=== PATIENT | female | born 1955 | race Caucasian/White ===

== ENCOUNTER → 2018-07-19 08:24 | Outpatient (CLI) | payer MEDICARE | END | disposition home or self-care (01) | LOC: D.MRI 08:24 | DX: M25.511 Pain in right shoulder (principal) ==

== ENCOUNTER 2020-01-18 07:12 | Inpatient (IN) | payer MEDICARE ==
[~2020-01-18] VITALS: Ht 162.6 cm; Wt 80.5 kg
[2020-01-18] VITALS (8 sets, daily range): BP systolic 98–152; BP diastolic 47–70; BMI 30.4
[2020-01-18 07:30] LABS: HEMATOCRIT 44.8 % (36.0-48.0); HEMOGLOBIN 14.9 g/dL (12-16); LYMPHOCYTES 35.3 % (15-50); MCH 32.3 pg (26.0-34.0); MCHC 33.3 g/dL (31.0-37.0); MEAN PLATELET VOLUME 9.8 fL (7.4-10.4); NEUTROPHILS 56.7 % (40-80); PLATELET COUNT 310 10x3/uL (130-400); RBC 4.62 10x6/uL (4.00-5.40); RDW 13.3 % (11.5-14.5)
[2020-01-18 07:52] LABS: CALC OSMOLALITY 277 mosm/kg (275-300); CALCIUM 9.4 mg/dL (8.5-10.1); CARBON DIOXIDE 25.7 mmol/L (21.0-32.0); CHLORIDE - SERUM 100 mmol/L (98-107); GLUCOSE 145 mg/dL (74-106); POTASSIUM - SERUM 3.8 mmol/L (3.5-5.1); SODIUM 137 mmol/L (136-145); UREA NITROGEN 16 mg/dL (7-18); eGFR NON AFRICAN AMERICAN 59 mL/min (90-120)
[2020-01-18] MEDS ORDERED: OMEPRAZOLE40 MG PO (07:58)
[2020-01-18] MEDS ORDERED: ZOCOR40 MG PO (07:58)
[2020-01-18] MEDS ORDERED: LEVOXYL75 MCG PO (07:58)
[2020-01-18] MEDS ORDERED: COLESTID1 GM PO (07:58)
[2020-01-18] MEDS ORDERED: ROPINIROLE HCL4 M1 PO (07:59)
[2020-01-18] MEDS ORDERED: HYDROXYCHLOROQ200 MG PO (08:00)
[2020-01-18 08:01] LABS: ALBUMIN 4.2 g/dL (3.4-5.0); ALKALINE PHOSPHATASE 112 U/L (30-120); ALT (SGPT) 78 U/L (10-68); AMYLASE - SERUM 39 U/L (25-115); BILIRUBIN - TOTAL 0.57 mg/dL (0.2-1.3); LIPASE 100 U/L (73-393); PROTEIN - SERUM 8.4 g/dL (6.4-8.2); TROPONIN-I < 0.017 ng/mL (0.000-0.060)
[2020-01-18] MEDS ORDERED: ROPINIROLE HCL2 MG PO (08:01)
[2020-01-18] MEDS ORDERED: ADIPEX-P37.5 M1 PO (08:01)
[2020-01-18] MEDS ORDERED: EFFEXOR XR150 MG PO (08:01)
--- NOTE | 2020-01-18 08:04 | NUR ---
URINE SPEC COLLECTED, LABELED AT BS AND SENT TO LAB
--- NOTE | 2020-01-18 08:25 | NUR ---
C/O ITCHING AT IV SITE. NO RASHES NOTED. NO DYSPNEA. SKIN W/D/P DR GARCIA NOTIFIED AND BENADRYL ORDERED/ADMIN
[2020-01-18 08:27] LABS: BILIRUBIN NEGATIVE (NEGATIVE); GLUCOSE NEGATIVE (NEGATIVE); KETONE NEGATIVE (NEGATIVE); NITRITE NEGATIVE (NEGATIVE); SPECIFIC GRAVITY 1.025 (1.005-1.020); UROBILINOGEN NORMAL (NORMAL)
--- NOTE | 2020-01-18 08:53 | NUR ---
RTND FROM CT. RESTING WITH EYES CLOSED LEFT SIDE. EASILY AROUSEABLE AND REPORTS PAIN AND NAUSEA RESOLVED
--- NOTE | 2020-01-18 10:56 | NUR ---
REPORT TO ROBERTO COTTRELL
--- NOTE | 2020-01-18 11:34 | NUR ---
RECEIVED PATIENT FROM ER ALERT AND ORIENTED. NO C/O PAIN. NO S/S OF ACUTE DISTRESS NOTED. IV TO LEFT FOREARM, SL. SITE PATENT WITHOUT REDNESS OR SWELLING. NGT TO LEFT NARE, ON LIS. AT BEDSIDE. DENIES ANY NEEDS AT THIS TIME. CALL LIGHT IN REACH. WILL CONTINUE TO MONITOR.
[2020-01-18 17:26] LABS: APTT 28.5 SECONDS (22.8-39.4); INR 0.89 (0.85-1.17)
--- NOTE | 2020-01-18 18:52 | NUR ---
RESTING IN BED WITH EYES CLOSED. RESPIRATIONS EVEN AND UNLABORED. NO S/S OF ACUTE DISTRESS NOTED. CALL LIGHT IN REACH. WILL CONTINUE TO MONITOR.
[2020-01-19] VITALS: BP 135/63
--- NOTE | 2020-01-19 04:29 | NUR ---
ASSESSED AT THE BEGINNING OF THE SHIFT. PT IS ALERT AND ORIENTED ABLE TO VERBALIZE NEEDS. SHE HAS A NG TUBE TO LIS AND IT IS DRAINING VERY LITTLE. SHE IS ABLE TO GET UP TO THE BATHROOM AND HAS ASKED FOR PAIN MEDS FOR A HEADACHE DURING THE NIGHT.
[2020-01-19 07:45] LABS: ALBUMIN 3.4 g/dL (3.4-5.0); ALKALINE PHOSPHATASE 125 U/L (30-120); BILIRUBIN - TOTAL 0.35 mg/dL (0.2-1.3); CALC OSMOLALITY 282 mosm/kg (275-300); CALCIUM 8.4 mg/dL (8.5-10.1); CARBON DIOXIDE 26.8 mmol/L (21.0-32.0); CHLORIDE - SERUM 108 mmol/L (98-107); CREATININE - SERUM 0.8 mg/dL (0.6-1.3); GLUCOSE 98 mg/dL (74-106); POTASSIUM - SERUM 3.8 mmol/L (3.5-5.1); PROTEIN - SERUM 6.9 g/dL (6.4-8.2); SODIUM 142 mmol/L (136-145); UREA NITROGEN 12 mg/dL (7-18); eGFR NON AFRICAN AMERICAN 76 mL/min (90-120)
[2020-01-19 07:49] LABS: ALT (SGPT) 233 U/L (10-68)
[2020-01-19 08:00] VITALS: BP 152/42
--- NOTE | 2020-01-19 08:14 | NUR ---
AWAKE AND ALERT. ORIENTED X3. NO C/O AT THIS TIME. LUNGS ARE CLEAR BILATERALLY, NO COUGH NOTED. SKIN IS INTACT WITHOUT REDNESS. NG TO RIGHT NARE IS PATENT WITH GREENISH DISCHARGE. IV TO LEFT FOREARM PATENT WITHOUT REDNESS AT INSERTION SITE. DENIES NEEDS.
[2020-01-19 08:59] LABS: BASOPHILS 0.2 % (0-2); EOSINOPHILS 1.4 % (0-7); HEMATOCRIT 38.3 % (36.0-48.0); HEMOGLOBIN 12.2 g/dL (12-16); IMMATURE GRANULOCYTES 0.2 % (0-5); LYMPHOCYTES 42.1 % (15-50); MCH 32.5 pg (26.0-34.0); MCHC 31.9 g/dL (31.0-37.0); MEAN PLATELET VOLUME 10.1 fL (7.4-10.4); MONOCYTES 7.8 % (2-11); NEUTROPHILS 48.3 % (40-80); RBC 3.75 10x6/uL (4.00-5.40); RDW 13.6 % (11.5-14.5)
[2020-01-19 09:06] LABS: MCV 102.1 fL (80.0-100.0); PLATELET COUNT 231 10x3/uL (130-400); WBC 5.6 10x3/uL (4.8-10.8)
--- NOTE | 2020-01-19 10:00 | NUR ---
DR MORALES HERE AND D/C NG TUBE. DIET ORDERED. GIVEN MOM PER ORDERS. WILL MONITOR.
[2020-01-19 10:56] VITALS: Ht 162.6 cm; Wt 80.5 kg
[2020-01-19 12:00] VITALS: BP 152/51
--- NOTE | 2020-01-19 12:30 | NUR ---
GIVEN ENEMA PER ORDERS. WILL MONITOR.
--- NOTE | 2020-01-19 13:30 | NUR ---
HAD SMALL BM. NOT OBSERVED PER STAFF.
--- NOTE | 2020-01-19 14:00 | NUR ---
HAD SECOND SMALL BM. WILL CONTINUE TO MONITOR.
[2020-01-19] MEDS ORDERED: LEVAQUIN750 MG PO (16:01)
[2020-01-19] MEDS ORDERED: FLAGYL500 MG PO (16:01)
[2020-01-19] MEDS ORDERED: ZOFRAN4 MG PO (16:01)
--- NOTE | 2020-01-19 16:15 | NUR ---
SITTING UP ON SIDE OF BED CRYING. SHE WANTS TO GO HOME. DANIAL MIRZA [facility] NOTIFIED OF SAME. DISCHARGE ORDERS RECEIVED.
[2020-01-19] MEDS ORDERED: NICODERM CQ1 EAC3 TOPICAL (16:22)
--- NOTE | 2020-01-19 16:39 | NUR ---
IV TO LEFT FOREARM D/C WITH CATHETER INTACT. DENIES NEEDS. WILL COMPLETE DISCHARGE WHEN ARRIVES.
--- NOTE | 2020-01-19 17:16 | NUR ---
DISCHARGED TO HOME AMBULATORY WITH . DISCHARGE INSTRUCTIONS GIVEN BOTH VERBALLY AND WRITTEN. ALL QUESTIONS ANSWERED. PATIENT AND VERBALIZED UNDERSTANDING OF SAME. ABLE TO VERBALIZED MEDS AT PHARMACY NEED TO BE PICKED UP. ALL BELONGINGS WITH PATIENT. NEEDED MEDS ESCRIBED TO PHARMACY OF CHOICE.
== END 2020-01-19 17:19 | disposition home or self-care (01) | DRG 389 ==
LOC: D.ER 07:12 → D.MS 09:32 → D.ER 10:58 → D.MS 01-19 17:19
PROVIDERS: Family Medicine; ADMIT Family Medicine; ATTEND Family Medicine
PROC: 0D9670Z Drainage of Stomach with Drainage Device, Via Natural or Artificial Opening (ICD-10-PCS; principal; 2020-01-18)
DX: K56.609 Unspecified intestinal obstruction, unspecified as to partial versus complete obstruction (principal); N39.0 Urinary tract infection, site not specified; R74.0 Nonspecific elevation of levels of transaminase and lactic acid dehydrogenase [LDH]; R73.9 Hyperglycemia, unspecified; K21.9 Gastro-esophageal reflux disease without esophagitis; K58.9 Irritable bowel syndrome, unspecified; E78.5 Hyperlipidemia, unspecified; E03.9 Hypothyroidism, unspecified; F41.9 Anxiety disorder, unspecified; G89.29 Other chronic pain; M54.9 Dorsalgia, unspecified